=== PATIENT | male | born 1985 | race African-American/Black ===

== ENCOUNTER 2018-03-14 15:14 | Emergency (ER) | payer BC ==
[2018-03-14] MEDS: LIDOCAINE WITH 8.4% SOD BICARB 3 ML DISP.SYRIN. INJ (17:05)
[2018-03-14] MEDS: HYDROcodone/APAP 5/325MG 1 TAB TABLET PO (17:37)
== END 2018-03-14 17:42 | disposition home or self-care (01) ==
LOC: ER 15:14
DX: S51.811A Laceration without foreign body of right forearm, initial encounter (principal); S63.610A Unspecified sprain of right index finger, initial encounter; S81.851A Open bite, right lower leg, initial encounter; S71.152A Open bite, left thigh, initial encounter; W54.0XXA Bitten by dog, initial encounter; Y93.89 Activity, other specified; Y99.8 Other external cause status; Y92.098 Other place in other non-institutional residence as the place of occurrence of the external cause
CPT/HCPCS: 12002; 99283